=== PATIENT | female | born 1945 | race American Indian/Alaskan Native ===

== ENCOUNTER 2017-08-25 12:13 | Emergency (ER) | payer MEDICARE ==
[~2017-08-25] VITALS: Ht 152.4 cm; Wt 71.1 kg
[~2017-08-25 12:13] MED LIST: ALBU6.7H INH; CLON0.1T PO; ESTR0.3T PO; FLUT15.88 INH; GEMF600T3 PO; HYDR25TA11 PO; IBUP-1222 PO; LEVO100T5 PO; LISI-167 PO; MONT10TA9 PO; OMEP-110 PO
[2017-08-25 12:15] VITALS: BP 149/92
[2017-08-25] MEDS ORDERED: SODIUM CHLORIDE FLUSH 10ML SYR IVF ONE (13:30)
[2017-08-25] MEDS ORDERED: ONDANSETRON 2MG/ML, 2ML IVPush ONE (13:30)
[2017-08-25] MEDS ORDERED: MORPHINE SULFATE 4 MG/ML, 1ML IVPush PRN (13:30)
[2017-08-25 13:37] LABS: HEMATOCRIT 38.7 % (34.6-47.8); HEMOGLOBIN 13.1 g/dL (11.7-16.4); WHITE BLOOD COUNT 11.3 x10^3/uL (3.4-10)
[2017-08-25 13:50] LABS: ASPARTATE AMINO TRANSFERASE 30 U/L (15-37); BLOOD UREA NITROGEN 19 mg/dL (7-18)
[2017-08-25 13:55] LABS: IS PT STATUS REG ER OR PRE ER? YES
[2017-08-25] MEDS ORDERED: ONDANSETRON 2MG/ML, 2ML ONE (14:42)
[2017-08-25] MEDS ORDERED: morphine SULFATE 10 MG/ML, 1ML ONE (14:42)
[2017-08-25] MEDS ORDERED: OMNIPAQUE 350 MG/ML, 100ML BOTTLE ONE (15:41)
== END 2017-08-25 16:31 | disposition home or self-care (01) ==
LOC: ED 14:53
DX: M54.6 Pain in thoracic spine (principal); R07.89 Other chest pain; I10 Essential (primary) hypertension
CPT/HCPCS: 36415; 71010; 71275; 80053; 83605; 84484; 85025; 85379; 93005; 96374; 96375; 99285; J2405; Q9967